=== PATIENT | male | born 1980 | race Caucasian/White ===

== ENCOUNTER 2017-12-22 09:12 | Emergency (ER) | payer MEDICAID ==
[~2017-12-22] VITALS: Ht 180.3 cm; Wt 85.0 kg
[~2017-12-22 09:12] MED LIST: ACET-890; ALBU18HF2 INH; LEVE250T4 PO; LORA10TA7 PO; OMEP40CA37 PO; [UNRECOGNIZED DRUG - OTHER]
[2017-12-22 09:39] VITALS: BP 102/59
[2017-12-22] MEDS ORDERED: LIDOcaine 5% patch TP STA (09:59)
[2017-12-22] MEDS ORDERED: TRAM50TA2 PO (10:34)
== END 2017-12-22 10:47 | disposition home or self-care (01) ==
LOC: ER 09:12
DX: M54.6 Pain in thoracic spine (principal); M54.5 Low back pain; G43.909 Migraine, unspecified, not intractable, without status migrainosus; Z60.2 Problems related to living alone; Z98.890 Other specified postprocedural states; Z88.5 Allergy status to narcotic agent; Z88.8 Allergy status to other drugs, medicaments and biological substances; Z79.899 Other long term (current) drug therapy
CPT/HCPCS: 72070; 72100; 99284

== ENCOUNTER 2018-01-02 16:03 | Emergency (ER) | payer MEDICAID ==
[~2018-01-02] VITALS: Ht 180.3 cm; Wt 90.9 kg
[~2018-01-02 16:03] MED LIST changes: +TRAM50TA2 PO
[2018-01-02 16:11] VITALS: BP 115/76
[2018-01-02] MEDS ORDERED: TRAM50TA2 PO (16:39)
[2018-01-02] MEDS ORDERED: ketorolac trometh inj. 60 MG/2 ML VIAL IM ONE (17:30)
[2018-01-02] MEDS ORDERED: triamcinolone acetonide 40mg/ml inj IM ONE (17:30)
[2018-01-02] MEDS ORDERED: meperidine/PF 100mg/ml syringe IM ONE (17:30)
[2018-01-02] MEDS ORDERED: meperidine/PF 50mg/ml syringe IM ONE ×2 (17:40→17:56)
[2018-01-02] MEDS ORDERED: HYDR-565 PO (17:47)
== END 2018-01-02 18:11 | disposition home or self-care (01) ==
LOC: ER 16:03
DX: M54.5 Low back pain (principal); G89.29 Other chronic pain; G43.909 Migraine, unspecified, not intractable, without status migrainosus; Z88.6 Allergy status to analgesic agent; Z88.1 Allergy status to other antibiotic agents; Z88.8 Allergy status to other drugs, medicaments and biological substances
CPT/HCPCS: 96372; 99284; J1885; J2175; J3301

== ENCOUNTER 2018-01-03 20:01 | Emergency (ER) | payer MEDICAID ==
[~2018-01-03] VITALS: Ht 180.3 cm; Wt 86.3 kg
[~2018-01-03 20:01] MED LIST changes: +HYDR-565 PO
[2018-01-03 20:13] VITALS: BP 110/72
== END 2018-01-03 22:38 | disposition home or self-care (01) ==
LOC: ER 20:02
DX: G89.29 Other chronic pain (principal); M54.5 Low back pain; M62.838 Other muscle spasm; G43.909 Migraine, unspecified, not intractable, without status migrainosus; F17.210 Nicotine dependence, cigarettes, uncomplicated; Z90.49 Acquired absence of other specified parts of digestive tract; Z98.890 Other specified postprocedural states; Z88.8 Allergy status to other drugs, medicaments and biological substances; Z88.5 Allergy status to narcotic agent; Z88.6 Allergy status to analgesic agent; Z79.899 Other long term (current) drug therapy
CPT/HCPCS: 99281

== ENCOUNTER 2018-02-04 09:23 | Day surgery (SDC) | payer MEDICAID ==
[~2018-02-04] VITALS: Ht 180.3 cm; Wt 88.5 kg
[~2018-02-04 09:23] MED LIST changes: -HYDR-565 PO; -TRAM50TA2 PO
[2018-02-04] MEDS ORDERED: fentaNYL/PF 50MCG/1 ML 2ML syringe ONE (09:46)
[2018-02-04] MEDS ORDERED: MIDAZolam 5mg/5ml vial ONE (09:46)
[2018-02-04] MEDS ORDERED: LIDOcaine Viscous 15ml cup ONE (09:46)
[2018-02-04] MEDS ORDERED: NEUDEXTA (09:54)
[2018-02-04] MEDS ORDERED: ZOLP10TA PO (09:55)
[2018-02-04] MEDS ORDERED: LORA-269 PO (09:55)
[2018-02-04] MEDS ORDERED: CYCL-1 PO (09:56)
[2018-02-04 10:00] VITALS: BP 126/74
[2018-02-04 10:37] VITALS: BP 114/65
[2018-02-04 10:47] VITALS: BP 107/45
[2018-02-04 10:57] VITALS: BP 104/50
[2018-02-04 11:07] VITALS: BP 124/69
== END 2018-02-04 11:20 | disposition home or self-care (01) ==
LOC: GI LAB 09:23
PROVIDERS: ATTEND Internal Medicine Gastroenterology
DX: K29.50 Unspecified chronic gastritis without bleeding (principal); K21.0 Gastro-esophageal reflux disease with esophagitis; K29.80 Duodenitis without bleeding; K44.9 Diaphragmatic hernia without obstruction or gangrene; F41.9 Anxiety disorder, unspecified; G43.909 Migraine, unspecified, not intractable, without status migrainosus; G89.29 Other chronic pain; Z88.1 Allergy status to other antibiotic agents; Z86.74 Personal history of sudden cardiac arrest; Z87.891 Personal history of nicotine dependence; Z90.89 Acquired absence of other organs; Z72.89 Other problems related to lifestyle; Z86.73 Personal history of transient ischemic attack (TIA), and cerebral infarction without residual deficits; Z88.6 Allergy status to analgesic agent; Z88.8 Allergy status to other drugs, medicaments and biological substances; Z88.5 Allergy status to narcotic agent; Z79.82 Long term (current) use of aspirin; Z79.899 Other long term (current) drug therapy; Z98.890 Other specified postprocedural states
CPT/HCPCS: 43239; 99152; J2250; J3010; J7030; A4620; G0500

== ENCOUNTER 2018-02-17 17:45 | Emergency (ER) | payer MEDICAID ==
[~2018-02-17] VITALS: Ht 180.3 cm; Wt 83.1 kg
[~2018-02-17 17:45] MED LIST changes: +CYCL-1 PO; -LEVE250T4 PO; +LORA-269 PO; +NEUDEXTA; +ZOLP10TA PO
[2018-02-17 18:11] VITALS: BP 121/77
[2018-02-17] MEDS ORDERED: AMOX-419 PO (18:32)
== END 2018-02-17 18:49 | disposition home or self-care (01) ==
LOC: ER 17:46
DX: S51.851A Open bite of right forearm, initial encounter (principal); G43.909 Migraine, unspecified, not intractable, without status migrainosus; Z90.49 Acquired absence of other specified parts of digestive tract; Z98.890 Other specified postprocedural states; Z88.6 Allergy status to analgesic agent; Z88.1 Allergy status to other antibiotic agents; Z88.5 Allergy status to narcotic agent; Z88.8 Allergy status to other drugs, medicaments and biological substances; Z79.899 Other long term (current) drug therapy; Z60.2 Problems related to living alone; W54.0XXA Bitten by dog, initial encounter; Y93.01 Activity, walking, marching and hiking; Y92.410 Unspecified street and highway as the place of occurrence of the external cause; Y99.8 Other external cause status
CPT/HCPCS: 99283

== ENCOUNTER 2018-07-11 10:21 | Emergency (ER) | payer MEDICAID, OTHER ==
[~2018-07-11] VITALS: Ht 180.3 cm; Wt 84.0 kg
[2018-07-11] MEDS ORDERED: ondansetron 4mg rapidly disintigrating tab PO ONE (12:20)
[2018-07-11] MEDS ORDERED: HYDROmorphone 1 mg/ml syringe IM ONE (12:20)
[2018-07-11 12:59] VITALS: BP 102/60
== END 2018-07-11 13:01 | disposition home or self-care (01) ==
LOC: ER 10:21
DX: M54.5 Low back pain (principal); M25.562 Pain in left knee; G89.29 Other chronic pain; G43.909 Migraine, unspecified, not intractable, without status migrainosus; Z90.49 Acquired absence of other specified parts of digestive tract; Z98.890 Other specified postprocedural states; Z88.6 Allergy status to analgesic agent; Z88.5 Allergy status to narcotic agent; Z88.8 Allergy status to other drugs, medicaments and biological substances; Z79.899 Other long term (current) drug therapy; Z60.2 Problems related to living alone; V89.2XXA Person injured in unspecified motor-vehicle accident, traffic, initial encounter; Y93.89 Activity, other specified; Y92.488 Other paved roadways as the place of occurrence of the external cause; Y99.8 Other external cause status
CPT/HCPCS: 72100; 73502; 73564; 96372; 99284; J1170

== ENCOUNTER 2018-10-14 15:19 | Emergency (ER) | payer MEDICAID ==
[~2018-10-14] VITALS: Ht 180.3 cm; Wt 84.0 kg
[2018-10-14 15:26] VITALS: BP 114/79
[2018-10-14 18:02] LABS: CLARITY,URINE CLEAR (Clear); COLOR,URINE YELLOW (Yellow); GLUCOSE, URINE NEGATIVE (Neg); KETONES,URINE NEGATIVE (Neg); LEUKOCYTE ESTERASE ,URINE NEGATIVE (Neg); NITRITES, URINE NEGATIVE (Neg); OCCULT BLOOD,URINE NEGATIVE (Neg); PROTEIN,URINE NEGATIVE (Neg); UROBILINOGEN,URINE 0.2 E.U/dL (0.2-1.0)
[2018-10-14 18:05] LABS: UA COLLECTION TYPE CLN CATCH MIDSTREAM
== END 2018-10-14 18:33 | disposition home or self-care (01) ==
LOC: ER 15:19
DX: R41.0 Disorientation, unspecified (principal); R25.1 Tremor, unspecified; R51 Headache; M54.9 Dorsalgia, unspecified; H53.9 Unspecified visual disturbance; R41.3 Other amnesia; R26.2 Difficulty in walking, not elsewhere classified; K14.6 Glossodynia; K14.9 Disease of tongue, unspecified; G89.29 Other chronic pain; Z88.8 Allergy status to other drugs, medicaments and biological substances; Z88.6 Allergy status to analgesic agent; Z79.899 Other long term (current) drug therapy; Z87.440 Personal history of urinary (tract) infections; Z87.19 Personal history of other diseases of the digestive system; Z90.49 Acquired absence of other specified parts of digestive tract; Z60.2 Problems related to living alone
CPT/HCPCS: 81003; 99284

== ENCOUNTER 2018-11-10 19:02 | Emergency (ER) | payer MEDICAID ==
[~2018-11-10] VITALS: Ht 180.3 cm; Wt 85.0 kg
[2018-11-10 22:49] VITALS: BP 133/93
--- NOTE | 2018-11-10 22:55 | NUR ---
PT AWAITING ER MD. PT WITH STABLE VS AND AT BEDSIDE. HE REPORTS A TBI 3 YRS AGO AND HAS HAD MANY PROBLEMS SINCE INCLUDING RANDOM EPISODES OF PAIN AND TREMORS TO HIS LEFT SIDE. MOSTLY HIS LEFT LEG. ON SATURDAY HE HAD PT AND HAD SOME INCREASED PAIN AND TREMORING TO HIS LEFT AND IT HAS BECOME WORSE. HE HAD A VERY VOILENT EPISODE OF TREMORING EARLIER TONIGHT THAT LEFT HIM WITH A SEVERE CONSTANT CRAMP TO HIS LEFT KNEE THAT RADIATES TO HIS LEFT INNTER THIGH.
[2018-11-10] MEDS ORDERED: acetaminophen 325mg tablet PO ONE (23:10)
== END 2018-11-10 23:57 | disposition home or self-care (01) ==
LOC: ER 19:03
DX: M79.605 Pain in left leg (principal); G89.29 Other chronic pain; Z90.49 Acquired absence of other specified parts of digestive tract; Z98.890 Other specified postprocedural states; Z60.2 Problems related to living alone; Z88.5 Allergy status to narcotic agent; Z88.6 Allergy status to analgesic agent; Z88.8 Allergy status to other drugs, medicaments and biological substances; Z79.899 Other long term (current) drug therapy
CPT/HCPCS: 73552; 99283

== ENCOUNTER 2018-11-16 16:49 | Emergency (ER) | payer MEDICAID ==
[~2018-11-16] VITALS: Ht 182.9 cm; Wt 87.0 kg
[2018-11-16] MEDS ORDERED: HYDROmorphone inj. 0.5 MG/0.5 ML DISP.SYRIN IV ONE (17:15)
[2018-11-16] MEDS ORDERED: LORazepam 2 mg/ml vial IV ONE (17:15)
[2018-11-16] MEDS ORDERED: normal saline 1000ML IV soln IVB ONE ×3 (17:15→18:40)
[2018-11-16] MEDS ORDERED: metoclopramide 5 mg/ml inj IV ONE (17:15)
[2018-11-16] MEDS ORDERED: diphenhydrAMINE 50 mg/ml inj IV ONE (17:15)
[2018-11-16 17:25] LABS: BASOPHILS # (AUTO) 0.1 X10'3 (0-0.2); BASOPHILS % (AUTO) 0.3 % (0-1); EOSINOPHILS % (AUTO) 0 % (0-6); HEMATOCRIT 49.4 % (42.0-52.0); HEMOGLOBIN 16.6 g/dl (14.0-17.9); LYMPHOCYTES # (AUTO) 1.6 X10'3 (1.1-4.8); MEAN CORPUSCULAR HEMOGLOBIN 28.2 PG (27.0-31.0); MEAN CORPUSCULAR HGB CONC 33.6 g/dL (33.0-36.5); MEAN PLATELET VOLUME 8.5 FL (7.4-10.4); MONOCYTES # (AUTO) 0.5 X10'3 (0-0.9); MONOCYTES % (AUTO) 2.5 % (2-12); NEUTROPHILS # (AUTO) 17.5 X10'3 (1.8-7.7); NEUTROPHILS % (AUTO) 89.2 % (42-75); PLATELET COUNT 346 X10'3 (140-440); RED BLOOD COUNT 5.88 X10'6 (4.70-6.10); RED CELL DISTRIBUTION WIDTH 14.4 % (11.5-14.5); WHITE BLOOD COUNT 19.6 X10'3 (4.5-11.0)
[2018-11-16 17:36] LABS: PROTHROMBIN TIME 10.3 SECONDS (9.0-12.0)
[2018-11-16 17:39] LABS: ALANINE AMINOTRANSFERASE 58 U/L (12-78); ALBUMIN 4.7 G/DL (3.4-5.0); ALBUMIN/GLOBULIN RATIO 1.1 (1.1-1.5); ALKALINE PHOSPHATASE 116 IU/L (46-116); ANION GAP 20 (8-16); ASPARTATE AMINO TRANSFERASE 28 U/L (10-37); BILIRUBIN,TOTAL 0.6 MG/DL (0.1-1.0); BLOOD UREA NITROGEN 21 MG/DL (7-18); BUN/CREATININE RATIO 16.5 (5.4-32.0); CALCIUM 10.6 MG/DL (8.5-10.1); CHLORIDE 101 MMOL/L (99-107); CREATININE 1.27 MG/DL (0.60-1.10); GLUCOSE 149 MG/DL (70-104); LIPASE 108 U/L (73-393); POTASSIUM 4.1 MMOL/L (3.5-5.1); SODIUM 141 MMOL/L (135-145); TOTAL CARBON DIOXIDE 20.3 MMOL/L (24-32); TOTAL PROTEIN 8.9 G/DL (6.4-8.2); eGFR 63 ML/MIN
[2018-11-16 17:55] LABS: CLARITY,URINE CLEAR (Clear); COLOR,URINE YELLOW (Yellow); GLUCOSE, URINE NEGATIVE (Neg); KETONES,URINE >=80 mg/dl (Neg); LEUKOCYTE ESTERASE ,URINE NEGATIVE (Neg); NITRITES, URINE NEGATIVE (Neg); OCCULT BLOOD,URINE TRACE-INTACT (Neg); PH,URINE 6.5 (4.8-8.0); PROTEIN,URINE 30 mg/dl (Neg); UROBILINOGEN,URINE 0.2 E.U/dL (0.2-1.0)
[2018-11-16 17:56] LABS: UA COLLECTION TYPE CLN CATCH MIDSTREAM
[2018-11-16 18:07] LABS: MUCUS STRANDS MANY /LPF (Neg); SQUAMOUS EPITHELIAL CELL,UR FEW /LPF (FEW)
[2018-11-16 18:09] LABS: WBC,URINE 0-4 /HPF (0-4)
[2018-11-16 18:10] LABS: BACTERIA,URINE FEW /HPF (Neg)
[2018-11-16 18:44] VITALS: BP 112/71
[2018-11-16] MEDS ORDERED: ONDA4TAB12 PO (19:37)
[2018-11-16] MEDS ORDERED: ondansetron/PF 4mg/2ml inj IV ONE (19:50)
== END 2018-11-16 20:01 | disposition home or self-care (01) ==
LOC: ER 16:50
DX: R10.13 Epigastric pain (principal); R11.2 Nausea with vomiting, unspecified; K21.9 Gastro-esophageal reflux disease without esophagitis; G89.29 Other chronic pain; F17.210 Nicotine dependence, cigarettes, uncomplicated; Z90.49 Acquired absence of other specified parts of digestive tract; Z98.890 Other specified postprocedural states; Z60.2 Problems related to living alone; Z88.5 Allergy status to narcotic agent; Z88.8 Allergy status to other drugs, medicaments and biological substances; Z79.899 Other long term (current) drug therapy
CPT/HCPCS: 36415; 74176; 80053; 81001; 83690; 84145; 85025; 85610; 96361; 96374; 96375; 99284; J1170; J1200; J2060; J2405; J2765; J7030

== ENCOUNTER 2019-05-26 17:39 | Emergency (ER) | payer MEDICAID ==
[~2019-05-26] VITALS: Ht 180.3 cm; Wt 88.6 kg
[~2019-05-26 17:39] MED LIST changes: +OMEP40CA13 PO; -OMEP40CA37 PO; +ONDA4TAB12 PO
[2019-05-26 17:55] VITALS: BP 119/84
== END 2019-05-26 19:21 | disposition home or self-care (01) ==
LOC: ER 17:39
DX: M79.652 Pain in left thigh (principal); M62.838 Other muscle spasm; R25.1 Tremor, unspecified; G43.909 Migraine, unspecified, not intractable, without status migrainosus; K21.9 Gastro-esophageal reflux disease without esophagitis; G89.29 Other chronic pain; F41.9 Anxiety disorder, unspecified; F31.9 Bipolar disorder, unspecified; F20.9 Schizophrenia, unspecified; F17.200 Nicotine dependence, unspecified, uncomplicated; Z90.49 Acquired absence of other specified parts of digestive tract; Z98.890 Other specified postprocedural states; Z60.2 Problems related to living alone; Z88.8 Allergy status to other drugs, medicaments and biological substances; Z88.5 Allergy status to narcotic agent; Z79.899 Other long term (current) drug therapy
CPT/HCPCS: 99284

== ENCOUNTER 2019-09-28 05:50 | Emergency (ER) | payer MEDICARE, MEDICAID ==
[~2019-09-28] VITALS: Ht 180.3 cm; Wt 93.0 kg
[2019-09-28 05:54] VITALS: BP 130/94
[2019-09-28] MEDS ORDERED: acetaminophen 325mg tablet PO ONE (06:15)
== END 2019-09-28 07:01 | disposition home or self-care (01) ==
LOC: ER 05:51
DX: S52.502A Unspecified fracture of the lower end of left radius, initial encounter for closed fracture (principal); G43.909 Migraine, unspecified, not intractable, without status migrainosus; K21.9 Gastro-esophageal reflux disease without esophagitis; G89.29 Other chronic pain; F15.90 Other stimulant use, unspecified, uncomplicated; Z90.49 Acquired absence of other specified parts of digestive tract; Z98.890 Other specified postprocedural states; Z88.6 Allergy status to analgesic agent; Z88.5 Allergy status to narcotic agent; Z88.1 Allergy status to other antibiotic agents; Z79.899 Other long term (current) drug therapy; W22.8XXA Striking against or struck by other objects, initial encounter; Y93.89 Activity, other specified; Y92.89 Other specified places as the place of occurrence of the external cause; Y99.9 Unspecified external cause status
CPT/HCPCS: 29125; 73110; 99283

== ENCOUNTER 2019-10-07 11:02 | Emergency (ER) | payer MEDICARE, MEDICAID ==
[~2019-10-07] VITALS: Ht 180.3 cm; Wt 93.2 kg
[2019-10-07 11:10] VITALS: BP 110/74
[2019-10-07] MEDS ORDERED: TRAM50TA2 PO (11:43)
== END 2019-10-07 11:52 | disposition home or self-care (01) ==
LOC: ER 11:02
DX: M25.532 Pain in left wrist (principal); G43.909 Migraine, unspecified, not intractable, without status migrainosus; K21.9 Gastro-esophageal reflux disease without esophagitis; G89.29 Other chronic pain; F15.90 Other stimulant use, unspecified, uncomplicated; Z98.890 Other specified postprocedural states; Z90.49 Acquired absence of other specified parts of digestive tract; Z88.6 Allergy status to analgesic agent; Z88.5 Allergy status to narcotic agent; Z88.8 Allergy status to other drugs, medicaments and biological substances; Z79.899 Other long term (current) drug therapy
CPT/HCPCS: 99284

== ENCOUNTER 2019-10-21 09:11 | Outpatient (CLI) | payer MEDICARE, MEDICAID ==
[2019-10-21 09:22] VITALS: BP 117/74
== END 2019-10-21 10:19 | disposition home or self-care (01) ==
LOC: ORTHO 09:11
PROVIDERS: ATTEND Nurse Practitioner
DX: S62.102A Fracture of unspecified carpal bone, left wrist, initial encounter for closed fracture (principal); X58.XXXA Exposure to other specified factors, initial encounter; Y93.89 Activity, other specified; Y92.89 Other specified places as the place of occurrence of the external cause; Y99.8 Other external cause status
CPT/HCPCS: 73110; G0463

== ENCOUNTER 2019-11-28 09:41 | Emergency (ER) | payer MEDICARE, MEDICAID ==
[~2019-11-28] VITALS: Ht 180.3 cm; Wt 79.1 kg
[2019-11-28 10:17] LABS: HEMOGLOBIN 17.2 g/dl (14.0-17.9); RED CELL DISTRIBUTION WIDTH 14.4 % (11.5-14.5); WHITE BLOOD COUNT 16.1 X10'3 (4.5-11.0)
[2019-11-28 10:19] LABS: BASOPHILS % (AUTO) 0.3 % (0-1); EOSINOPHILS % (AUTO) 0.1 % (0-6); LYMPHOCYTES # (AUTO) 1.6 X10'3 (1.1-4.8); LYMPHOCYTES % (AUTO) 9.9 % (21-51); MEAN CORPUSCULAR HGB CONC 33.7 g/dL (33.0-36.5); MEAN CORPUSCULAR VOLUME 83.2 FL (78-98); MEAN PLATELET VOLUME 8.4 FL (7.4-10.4); MONOCYTES # (AUTO) 0.4 X10'3 (0-0.9); MONOCYTES % (AUTO) 2.4 % (2-12); NEUTROPHILS % (AUTO) 87.3 % (42-75); PLATELET COUNT 384 X10'3 (140-440); RED BLOOD COUNT 6.14 X10'6 (4.70-6.10)
[2019-11-28 10:31] LABS: ALANINE AMINOTRANSFERASE 42 U/L (12-78); ALBUMIN 5.1 G/DL (3.4-5.0); ALBUMIN/GLOBULIN RATIO 1.1 (1.1-1.5); ALKALINE PHOSPHATASE 114 IU/L (46-116); ANION GAP 16 (8-16); ASPARTATE AMINO TRANSFERASE 25 U/L (10-37); BILIRUBIN,TOTAL 0.7 MG/DL (0.1-1.0); BLOOD UREA NITROGEN 17 MG/DL (7-18); CALCIUM 10.5 MG/DL (8.5-10.1); CHLORIDE 101 MMOL/L (99-107); CREATININE 1.06 MG/DL (0.60-1.10); GLUCOSE 125 MG/DL (70-104); LIPASE 192 U/L (73-393); SODIUM 141 MMOL/L (135-145); TOTAL CARBON DIOXIDE 24.2 MMOL/L (24-32); TOTAL PROTEIN 9.7 G/DL (6.4-8.2); eGFR 77 ML/MIN
[2019-11-28 11:01] LABS: CLARITY,URINE CLEAR (Clear); COLOR,URINE YELLOW (Yellow); GLUCOSE, URINE NEGATIVE (Neg); KETONES,URINE >=80 mg/dl (Neg); LEUKOCYTE ESTERASE ,URINE NEGATIVE (Neg); NITRITES, URINE NEGATIVE (Neg); OCCULT BLOOD,URINE NEGATIVE (Neg); PROTEIN,URINE TRACE mg/dl (Neg); UROBILINOGEN,URINE 0.2 E.U/dL (0.2-1.0)
[2019-11-28 11:13] LABS: UA COLLECTION TYPE NON-SPECIFIED
[2019-11-28 11:18] LABS: BACTERIA,URINE NONE SEEN /HPF (Neg); MUCUS STRANDS FEW /LPF (Neg); RBC,URINE 0-2 /HPF (0-2); SQUAMOUS EPITHELIAL CELL,UR NONE SEEN /LPF (FEW); WBC,URINE 0-4 /HPF (0-4)
[2019-11-28] MEDS ORDERED: normal saline 1000ML IV soln IVB ONE (11:35)
[2019-11-28] MEDS ORDERED: haloperidol lactate 5mg/ml inj IM ONE (11:35)
[2019-11-28] MEDS ORDERED: diphenhydrAMINE 50 mg/ml inj IV ONE (11:35)
[2019-11-28] MEDS ORDERED: metoclopramide 5 mg/ml inj IV ONE (11:35)
[2019-11-28] MEDS ORDERED: famotidine/PF 10 mg/ml inj IV ONE (11:35)
[2019-11-28] MEDS ORDERED: LIDOcaine Viscous 15ml cup MM STA (12:05)
[2019-11-28] MEDS ORDERED: mag hydrox/Alum hydrox/simeth 30ml oral suspension PO ONE (12:05)
[2019-11-28] MEDS ORDERED: ONDA4TAB6 PO (13:38)
[2019-11-28] MEDS ORDERED: DICY10CA88 PO (13:38)
[2019-11-28] MEDS ORDERED: MAG355OR18 PO (13:38)
[2019-11-28 13:51] VITALS: BP 126/83
[2019-11-30] MEDS ORDERED: LORA-269 PO (06:12)
[2019-11-30] MEDS ORDERED: DEXT1CAP3 PO (06:15)
== END 2019-11-28 13:53 | disposition home or self-care (01) ==
LOC: ER 09:42
DX: R10.13 Epigastric pain (principal); R11.2 Nausea with vomiting, unspecified; K59.00 Constipation, unspecified; J44.9 Chronic obstructive pulmonary disease, unspecified; K21.9 Gastro-esophageal reflux disease without esophagitis; G89.29 Other chronic pain; F41.9 Anxiety disorder, unspecified; F31.9 Bipolar disorder, unspecified; F20.9 Schizophrenia, unspecified; F12.90 Cannabis use, unspecified, uncomplicated; Z90.49 Acquired absence of other specified parts of digestive tract; Z98.890 Other specified postprocedural states; Z88.5 Allergy status to narcotic agent; Z88.8 Allergy status to other drugs, medicaments and biological substances; Z79.899 Other long term (current) drug therapy
CPT/HCPCS: 36415; 76700; 80053; 81001; 83690; 84484; 85025; 96361; 96372; 96374; 96375; 99285; J1200; J1630; J2765; J3490; J7030

== ENCOUNTER 2020-01-10 16:55 | Emergency (ER) | payer MEDICARE, MEDICAID ==
[~2020-01-10] VITALS: Ht 182.9 cm; Wt 84.7 kg
[~2020-01-10 16:55] MED LIST changes: +DEXT1CAP3 PO; +DICY10CA88 PO; -NEUDEXTA; -ZOLP10TA PO
[2020-01-10] MEDS ORDERED: ondansetron/PF 4mg/2ml inj IV ONE (17:10)
[2020-01-10] MEDS ORDERED: normal saline 1000ML IV soln IVB ONE (17:10)
[2020-01-10 17:35] LABS: BASOPHILS # (AUTO) 0.1 X10'3 (0-0.2); BASOPHILS % (AUTO) 0.5 % (0-1); EOSINOPHILS # (AUTO) 0.1 X10'3 (0-0.9); EOSINOPHILS % (AUTO) 0.7 % (0-6); HEMATOCRIT 47.3 % (42.0-52.0); HEMOGLOBIN 15.9 g/dl (14.0-17.9); LYMPHOCYTES # (AUTO) 3.1 X10'3 (1.1-4.8); LYMPHOCYTES % (AUTO) 18.7 % (21-51); MEAN CORPUSCULAR HEMOGLOBIN 27.8 PG (27.0-31.0); MEAN CORPUSCULAR HGB CONC 33.5 g/dL (33.0-36.5); MEAN CORPUSCULAR VOLUME 83.1 FL (78-98); MEAN PLATELET VOLUME 8.1 FL (7.4-10.4); MONOCYTES # (AUTO) 0.7 X10'3 (0-0.9); MONOCYTES % (AUTO) 4.5 % (2-12); NEUTROPHILS # (AUTO) 12.4 X10'3 (1.8-7.7); NEUTROPHILS % (AUTO) 75.6 % (42-75); PLATELET COUNT 400 X10'3 (140-440); RED CELL DISTRIBUTION WIDTH 14.1 % (11.5-14.5); WHITE BLOOD COUNT 16.4 X10'3 (4.5-11.0)
[2020-01-10 17:50] LABS: ALANINE AMINOTRANSFERASE 39 U/L (12-78); ALBUMIN 4.7 G/DL (3.4-5.0); ALBUMIN/GLOBULIN RATIO 1.2 (1.1-1.5); ALKALINE PHOSPHATASE 115 IU/L (46-116); ANION GAP 16 (8-16); ASPARTATE AMINO TRANSFERASE 28 U/L (10-37); BILIRUBIN,TOTAL 0.6 MG/DL (0.1-1.0); BLOOD UREA NITROGEN 15 MG/DL (7-18); BUN/CREATININE RATIO 13.3 (5.4-32.0); CHLORIDE 101 MMOL/L (99-107); CREATININE 1.13 MG/DL (0.60-1.10); GLUCOSE 143 MG/DL (70-104); LIPASE 146 U/L (73-393); MAGNESIUM 1.9 MG/DL (1.5-2.4); POTASSIUM 3.6 MMOL/L (3.5-5.1); SODIUM 141 MMOL/L (135-145); TOTAL CARBON DIOXIDE 23.9 MMOL/L (24-32); TOTAL PROTEIN 8.6 G/DL (6.4-8.2); eGFR 72 ML/MIN
[2020-01-10 17:52] LABS: ETHANOL < 0.010 GM/DL (0.0-0.010)
[2020-01-10] MEDS ORDERED: ONDA8TAB6 PO (18:04)
[2020-01-10 18:12] VITALS: BP 145/98
[2020-01-10] MEDS ORDERED: metoclopramide 5 mg/ml inj IV ONE (18:20)
== END 2020-01-10 18:40 | disposition home or self-care (01) ==
LOC: ER 16:56
DX: R10.84 Generalized abdominal pain (principal); R11.2 Nausea with vomiting, unspecified; G43.909 Migraine, unspecified, not intractable, without status migrainosus; J44.9 Chronic obstructive pulmonary disease, unspecified; K21.9 Gastro-esophageal reflux disease without esophagitis; G89.29 Other chronic pain; F12.90 Cannabis use, unspecified, uncomplicated; Z90.49 Acquired absence of other specified parts of digestive tract; Z98.890 Other specified postprocedural states; Z88.6 Allergy status to analgesic agent; Z88.5 Allergy status to narcotic agent; Z88.8 Allergy status to other drugs, medicaments and biological substances; Z79.899 Other long term (current) drug therapy
CPT/HCPCS: 36415; 80053; 80320; 83690; 83735; 85025; 96361; 96374; 96375; 99284; J2405; J2765; J7030

== ENCOUNTER 2020-01-11 01:10 | Emergency (ER) | payer MEDICARE, MEDICAID ==
[~2020-01-11] VITALS: Ht 180.3 cm; Wt 84.1 kg
[~2020-01-11 01:10] MED LIST changes: +ONDA8TAB6 PO
[2020-01-11] MEDS ORDERED: normal saline 1000ML IV soln IVB ONE (01:25)
[2020-01-11] MEDS ORDERED: magnesium 2GM in 50ml NS 50 ML IV ONE (01:25)
[2020-01-11] MEDS ORDERED: LORazepam 2 mg/ml vial IV ONE (01:25)
[2020-01-11] MEDS ORDERED: haloperidol lactate 5mg/ml inj IM ONE (01:30)
--- NOTE | 2020-01-11 02:00 | NUR ---
pt up to br to have bm. ambulating with steady sow gait. 1st of 2 liters ns infused. just given ativan 1 mg iv and haldol 2.5 mg im. just had episode of emesis, 80 cc's, watery light red.
[2020-01-11 03:01] VITALS: BP 139/87
== END 2020-01-11 03:26 | disposition home or self-care (01) ==
LOC: ER 01:11
DX: K29.00 Acute gastritis without bleeding (principal); J44.9 Chronic obstructive pulmonary disease, unspecified; K21.9 Gastro-esophageal reflux disease without esophagitis; G89.29 Other chronic pain; F41.9 Anxiety disorder, unspecified; F31.9 Bipolar disorder, unspecified; F20.9 Schizophrenia, unspecified; F12.90 Cannabis use, unspecified, uncomplicated; Z90.49 Acquired absence of other specified parts of digestive tract; Z98.890 Other specified postprocedural states; Z60.2 Problems related to living alone; Z88.5 Allergy status to narcotic agent; Z88.6 Allergy status to analgesic agent; Z88.8 Allergy status to other drugs, medicaments and biological substances; Z79.899 Other long term (current) drug therapy
CPT/HCPCS: 96365; 96366; 96372; 96375; 99284; J1630; J2060; J3475; J7030

== ENCOUNTER 2020-06-19 17:19 | Emergency (ER) | payer MEDICARE, MEDICAID ==
[~2020-06-19] VITALS: Ht 180.3 cm; Wt 93.2 kg
[2020-06-19 17:35] VITALS: BP 154/95
--- NOTE | 2020-06-19 18:00 | NUR ---
PT. CALLED, PT. SITTING ON FLOWER BED AND NOW REFUSES TO COME BACK TO A ROOM. SCREENER TOLD PT. THAT WE WERE CALLING HIM BACK TO A ROOM PT. STATED " I AM NOT GOING I AM LEAVING, I HAVE WAITED TO LONG. WE LET HIM KNOW THE BED WAS READY AND HE REFUSED.
[2020-06-20] MEDS ORDERED: ONDA8TAB13 PO (02:02)
== END 2020-06-19 18:48 | disposition home or self-care (01) ==
LOC: ER 17:20
DX: R42 Dizziness and giddiness (principal); Z53.21 Procedure and treatment not carried out due to patient leaving prior to being seen by health care provider
CPT/HCPCS: 93005

== ENCOUNTER 2020-06-19 23:55 | Emergency (ER) | payer MEDICARE, MEDICAID ==
[~2020-06-19] VITALS: Ht 180.3 cm; Wt 90.9 kg
[2020-06-20] MEDS ORDERED: normal saline 1000ML IV soln IVB ONE (00:15)
[2020-06-20] MEDS ORDERED: ondansetron/PF 4mg/2ml inj IV ONE (00:15)
[2020-06-20 00:40] LABS: COLOR,URINE YELLOW (Yellow); GLUCOSE, URINE NEGATIVE (Neg); LEUKOCYTE ESTERASE ,URINE NEGATIVE (Neg); NITRITES, URINE NEGATIVE (Neg)
[2020-06-20 00:41] LABS: CLARITY,URINE SLIGHTLY CLOUDY (Clear); KETONES,URINE NEGATIVE (Neg); OCCULT BLOOD,URINE LARGE (Neg); PROTEIN,URINE NEGATIVE (Neg)
[2020-06-20 00:51] LABS: BASOPHILS # (AUTO) 0.1 X10'3 (0-0.2); BASOPHILS % (AUTO) 0.4 % (0-1); EOSINOPHILS % (AUTO) 0 % (0-6); HEMATOCRIT 47.1 % (42.0-52.0); LYMPHOCYTES # (AUTO) 1.4 X10'3 (1.1-4.8); LYMPHOCYTES % (AUTO) 9.4 % (21-51); MEAN CORPUSCULAR HEMOGLOBIN 27.9 PG (27.0-31.0); MEAN PLATELET VOLUME 8.6 FL (7.4-10.4); MONOCYTES # (AUTO) 0.5 X10'3 (0-0.9); MONOCYTES % (AUTO) 3.1 % (2-12); NEUTROPHILS # (AUTO) 12.9 X10'3 (1.8-7.7); NEUTROPHILS % (AUTO) 87.1 % (42-75); PLATELET COUNT 345 X10'3 (140-440); RED BLOOD COUNT 5.74 X10'6 (4.70-6.10); RED CELL DISTRIBUTION WIDTH 14.3 % (11.5-14.5); WHITE BLOOD COUNT 14.7 X10'3 (4.5-11.0)
[2020-06-20 00:58] LABS: ALANINE AMINOTRANSFERASE 32 U/L (12-78); ALBUMIN 4.5 G/DL (3.4-5.0); ALBUMIN/GLOBULIN RATIO 1.2 (1.1-1.5); ALKALINE PHOSPHATASE 102 IU/L (46-116); ANION GAP 15 (8-16); ASPARTATE AMINO TRANSFERASE 18 U/L (10-37); BILIRUBIN,TOTAL 0.5 MG/DL (0.1-1.0); BLOOD UREA NITROGEN 16 MG/DL (7-18); BUN/CREATININE RATIO 14.7 (5.4-32.0); CALCIUM 9.9 MG/DL (8.5-10.1); CHLORIDE 102 MMOL/L (99-107); CREATININE 1.09 MG/DL (0.60-1.10); ETHANOL < 0.010 GM/DL (0.0-0.010); GLUCOSE 146 MG/DL (70-104); LIPASE 132 U/L (73-393); POTASSIUM 3.3 MMOL/L (3.5-5.1); SODIUM 139 MMOL/L (135-145); TOTAL CARBON DIOXIDE 22.5 MMOL/L (24-32); TOTAL PROTEIN 8.4 G/DL (6.4-8.2); eGFR 75 ML/MIN
[2020-06-20 01:05] LABS: UA COLLECTION TYPE VOIDED
[2020-06-20 01:17] LABS: BACTERIA,URINE NONE SEEN /HPF (Neg); MUCUS STRANDS MANY /LPF (Neg); SQUAMOUS EPITHELIAL CELL,UR FEW /LPF (FEW); TRANSITIONAL EPI CELLS,URINE FEW /HPF; WBC,URINE 0-4 /HPF (0-4)
[2020-06-20 01:22] LABS: AMMONIUM BIURATE CRYSTALS FEW /HPF (NEGATIVE)
[2020-06-20] MEDS ORDERED: haloperidol lactate 5mg/ml inj IM ONE (01:25)
[2020-06-20] MEDS ORDERED: LORazepam 2 mg/ml vial IV ONE (01:25)
[2020-06-20] MEDS ORDERED: ONDA8TAB13 PO (02:02)
[2020-06-20 02:07] VITALS: BP 110/66
== END 2020-06-20 02:17 | disposition home or self-care (01) ==
LOC: ER 23:56
DX: E86.0 Dehydration (principal); R11.2 Nausea with vomiting, unspecified; J44.9 Chronic obstructive pulmonary disease, unspecified; G43.909 Migraine, unspecified, not intractable, without status migrainosus; K21.9 Gastro-esophageal reflux disease without esophagitis; G89.29 Other chronic pain; F41.9 Anxiety disorder, unspecified; F31.9 Bipolar disorder, unspecified; F20.9 Schizophrenia, unspecified; F12.90 Cannabis use, unspecified, uncomplicated; Z90.49 Acquired absence of other specified parts of digestive tract; Z98.890 Other specified postprocedural states; Z60.2 Problems related to living alone; Z88.5 Allergy status to narcotic agent; Z88.8 Allergy status to other drugs, medicaments and biological substances; Z79.899 Other long term (current) drug therapy
CPT/HCPCS: 36415; 80053; 80320; 81001; 83690; 85025; 96361; 96372; 96374; 96375; 99284; J1630; J2060; J2405; J7030

== ENCOUNTER → 2020-06-20 | Emergency (ER) | payer MEDICARE, MEDICAID ==
[~2020-06-20] VITALS: Ht 180.3 cm; Wt 90.9 kg
[~2020-06-20] MED LIST changes: +ONDA8TAB13 PO
[2020-06-20 21:38] VITALS: BP 146/92
== END | disposition home or self-care (01) ==
LOC: ER 21:36
DX: R68.84 Jaw pain (principal); G43.909 Migraine, unspecified, not intractable, without status migrainosus; J44.9 Chronic obstructive pulmonary disease, unspecified; G89.29 Other chronic pain; F41.9 Anxiety disorder, unspecified; F31.9 Bipolar disorder, unspecified; F20.9 Schizophrenia, unspecified; K21.9 Gastro-esophageal reflux disease without esophagitis; F12.90 Cannabis use, unspecified, uncomplicated; Z72.89 Other problems related to lifestyle; Z60.2 Problems related to living alone; Z88.8 Allergy status to other drugs, medicaments and biological substances; Z88.5 Allergy status to narcotic agent; Z79.899 Other long term (current) drug therapy
CPT/HCPCS: 99281

== ENCOUNTER 2020-07-08 11:13 | Emergency (ER) | payer MEDICARE, MEDICAID ==
[~2020-07-08] VITALS: Ht 182.9 cm; Wt 81.0 kg
[2020-07-08 12:22] LABS: BASOPHILS # (AUTO) 0.1 X10'3 (0-0.2); BASOPHILS % (AUTO) 0.4 % (0-1); EOSINOPHILS # (AUTO) 0.1 X10'3 (0-0.9); EOSINOPHILS % (AUTO) 0.4 % (0-6); HEMATOCRIT 48.3 % (42.0-52.0); HEMOGLOBIN 16.3 g/dl (14.0-17.9); LYMPHOCYTES # (AUTO) 2.2 X10'3 (1.1-4.8); LYMPHOCYTES % (AUTO) 12.5 % (21-51); MEAN CORPUSCULAR HEMOGLOBIN 27.7 PG (27.0-31.0); MEAN CORPUSCULAR HGB CONC 33.8 g/dL (33.0-36.5); MEAN CORPUSCULAR VOLUME 82.1 FL (78-98); MEAN PLATELET VOLUME 8.2 FL (7.4-10.4); MONOCYTES # (AUTO) 0.6 X10'3 (0-0.9); MONOCYTES % (AUTO) 3.3 % (2-12); NEUTROPHILS # (AUTO) 14.6 X10'3 (1.8-7.7); NEUTROPHILS % (AUTO) 83.4 % (42-75); PLATELET COUNT 386 X10'3 (140-440); RED BLOOD COUNT 5.88 X10'6 (4.70-6.10); RED CELL DISTRIBUTION WIDTH 14.2 % (11.5-14.5); WHITE BLOOD COUNT 17.6 X10'3 (4.5-11.0)
[2020-07-08 12:38] LABS: ALANINE AMINOTRANSFERASE 52 U/L (12-78); ALBUMIN 4.7 G/DL (3.4-5.0); ALBUMIN/GLOBULIN RATIO 1.1 (1.1-1.5); ALKALINE PHOSPHATASE 126 IU/L (46-116); AMYLASE 61 U/L (25-115); ANION GAP 16 (8-16); ASPARTATE AMINO TRANSFERASE 20 U/L (10-37); BILIRUBIN,TOTAL 0.5 MG/DL (0.1-1.0); BLOOD UREA NITROGEN 18 MG/DL (7-18); BUN/CREATININE RATIO 16.8 (5.4-32.0); CHLORIDE 102 MMOL/L (99-107); CREATININE 1.07 MG/DL (0.60-1.10); GLUCOSE 178 MG/DL (70-104); LIPASE 125 U/L (73-393); SODIUM 137 MMOL/L (135-145); TOTAL CARBON DIOXIDE 18.9 MMOL/L (24-32); TOTAL PROTEIN 8.8 G/DL (6.4-8.2); eGFR 76 ML/MIN
[2020-07-08] MEDS ORDERED: ondansetron/PF 4mg/2ml inj IV ONE (12:45)
[2020-07-08] MEDS ORDERED: normal saline 1000ML IV soln IVB ONE (12:45)
[2020-07-08] MEDS ORDERED: iohexol 300mg/ml 100ml inj. ONE (13:00)
[2020-07-08 13:43] LABS: ETHANOL < 0.010 GM/DL (0.0-0.010)
[2020-07-08 13:49] LABS: PARTIAL THROMBOPLASTIN TIME 25 SECONDS (22-32)
[2020-07-08 14:59] LABS: CLARITY,URINE CLEAR (Clear); COLOR,URINE YELLOW (Yellow); GLUCOSE, URINE NEGATIVE (Neg); KETONES,URINE TRACE mg/dl (Neg); LEUKOCYTE ESTERASE ,URINE NEGATIVE (Neg); NITRITES, URINE NEGATIVE (Neg); OCCULT BLOOD,URINE NEGATIVE (Neg); PH,URINE 5.5 (4.8-8.0); PROTEIN,URINE NEGATIVE (Neg); UROBILINOGEN,URINE 0.2 E.U/dL (0.2-1.0)
[2020-07-08 15:05] LABS: UA COLLECTION TYPE CLN CATCH MIDSTREAM
[2020-07-08 15:34] LABS: OCCULT BLOOD STOOL NEGATIVE (Neg)
[2020-07-08] MEDS ORDERED: CIP750T PO (15:49)
[2020-07-08] MEDS ORDERED: METR500T PO (15:49)
[2020-07-08 16:50] VITALS: BP 136/79
== END 2020-07-08 17:53 | disposition home or self-care (01) ==
LOC: ER 11:13
DX: K52.9 Noninfective gastroenteritis and colitis, unspecified (principal); R10.9 Unspecified abdominal pain; R11.10 Vomiting, unspecified; G43.909 Migraine, unspecified, not intractable, without status migrainosus; J44.9 Chronic obstructive pulmonary disease, unspecified; K21.9 Gastro-esophageal reflux disease without esophagitis; G89.29 Other chronic pain; F41.9 Anxiety disorder, unspecified; F31.9 Bipolar disorder, unspecified; F20.9 Schizophrenia, unspecified; F17.200 Nicotine dependence, unspecified, uncomplicated; R19.7 Diarrhea, unspecified; F12.90 Cannabis use, unspecified, uncomplicated; Z90.49 Acquired absence of other specified parts of digestive tract; Z98.890 Other specified postprocedural states; Z88.5 Allergy status to narcotic agent; Z88.8 Allergy status to other drugs, medicaments and biological substances; Z79.899 Other long term (current) drug therapy
CPT/HCPCS: 36415; 71045; 74177; 80053; 80320; 81003; 82150; 82272; 83690; 84484; 85025; 85610; 85730; 96361; 96374; 99285; J2405; J7030; Q9967

== ENCOUNTER 2020-07-21 08:19 | Emergency (ER) | payer MEDICARE, MEDICAID ==
[~2020-07-21] VITALS: Ht 180.3 cm; Wt 83.2 kg
[2020-07-21] MEDS ORDERED: normal saline 1000ML IV soln IVB ONE (09:15)
[2020-07-21] MEDS ORDERED: haloperidol lactate 5mg/ml inj IM ONE (09:20)
[2020-07-21] MEDS ORDERED: famotidine/PF 10 mg/ml inj IV ONE (09:20)
[2020-07-21] MEDS ORDERED: LORazepam 2 mg/ml vial IV ONE (09:20)
[2020-07-21 09:46] LABS: BASOPHILS # (AUTO) 0.1 X10'3 (0-0.2); BASOPHILS % (AUTO) 0.2 % (0-1); EOSINOPHILS # (AUTO) 0.1 X10'3 (0-0.9); EOSINOPHILS % (AUTO) 0.3 % (0-6); HEMOGLOBIN 15.4 g/dl (14.0-17.9); LYMPHOCYTES # (AUTO) 1.2 X10'3 (1.1-4.8); LYMPHOCYTES % (AUTO) 4.4 % (21-51); MEAN CORPUSCULAR HEMOGLOBIN 27.5 PG (27.0-31.0); MEAN CORPUSCULAR HGB CONC 33.4 g/dL (33.0-36.5); MEAN CORPUSCULAR VOLUME 82.3 FL (78-98); MEAN PLATELET VOLUME 8.2 FL (7.4-10.4); MONOCYTES # (AUTO) 0.9 X10'3 (0-0.9); MONOCYTES % (AUTO) 3.5 % (2-12); NEUTROPHILS # (AUTO) 24.8 X10'3 (1.8-7.7); NEUTROPHILS % (AUTO) 91.6 % (42-75); PLATELET COUNT 290 X10'3 (140-440); RED CELL DISTRIBUTION WIDTH 14.4 % (11.5-14.5)
[2020-07-21 09:48] LABS: WHITE BLOOD COUNT 27.1 X10'3 (4.5-11.0)
[2020-07-21 09:54] LABS: ALANINE AMINOTRANSFERASE 41 U/L (12-78); ALBUMIN 4.2 G/DL (3.4-5.0); ALBUMIN/GLOBULIN RATIO 1.1 (1.1-1.5); ALKALINE PHOSPHATASE 103 IU/L (46-116); ANION GAP 12 (8-16); ASPARTATE AMINO TRANSFERASE 18 U/L (10-37); BILIRUBIN,TOTAL 0.7 MG/DL (0.1-1.0); BLOOD UREA NITROGEN 14 MG/DL (7-18); BUN/CREATININE RATIO 11.4 (5.4-32.0); CALCIUM 9.8 MG/DL (8.5-10.1); CHLORIDE 100 MMOL/L (99-107); CREATININE 1.23 MG/DL (0.60-1.10); GLUCOSE 169 MG/DL (70-104); LIPASE 107 U/L (73-393); POTASSIUM 3.7 MMOL/L (3.5-5.1); SODIUM 137 MMOL/L (135-145); TOTAL CARBON DIOXIDE 25.2 MMOL/L (24-32); TOTAL PROTEIN 8.2 G/DL (6.4-8.2); eGFR 65 ML/MIN
[2020-07-21 10:29] LABS: PLATELET ESTIMATE NORMAL; TOTAL CELLS COUNTED 100
[2020-07-21 11:27] VITALS: BP 134/87
== END 2020-07-21 11:29 | disposition home or self-care (01) ==
LOC: ER 08:20
DX: R11.15 Cyclical vomiting syndrome unrelated to migraine (principal); R10.30 Lower abdominal pain, unspecified; G43.909 Migraine, unspecified, not intractable, without status migrainosus; J44.9 Chronic obstructive pulmonary disease, unspecified; K21.9 Gastro-esophageal reflux disease without esophagitis; G89.29 Other chronic pain; F41.9 Anxiety disorder, unspecified; F31.9 Bipolar disorder, unspecified; F20.9 Schizophrenia, unspecified; F12.90 Cannabis use, unspecified, uncomplicated; Z90.49 Acquired absence of other specified parts of digestive tract; Z98.890 Other specified postprocedural states; Z72.89 Other problems related to lifestyle; Z88.5 Allergy status to narcotic agent; Z88.8 Allergy status to other drugs, medicaments and biological substances; Z79.899 Other long term (current) drug therapy
CPT/HCPCS: 36415; 80053; 83605; 83690; 84145; 85007; 85025; 87040; 96361; 96372; 96374; 96375; 99285; J1630; J2060; J3490; J7030

== ENCOUNTER 2020-07-29 12:14 | Emergency (ER) | payer MEDICARE, MEDICAID ==
[~2020-07-29] VITALS: Ht 180.3 cm; Wt 79.0 kg
[2020-07-29 12:59] LABS: BASOPHILS # (AUTO) 0.1 X10'3 (0-0.2); BASOPHILS % (AUTO) 0.4 % (0-1); EOSINOPHILS % (AUTO) 0.2 % (0-6); HEMATOCRIT 48.4 % (42.0-52.0); HEMOGLOBIN 16.3 g/dl (14.0-17.9); LYMPHOCYTES # (AUTO) 1.6 X10'3 (1.1-4.8); LYMPHOCYTES % (AUTO) 11.8 % (21-51); MEAN CORPUSCULAR HEMOGLOBIN 27.5 PG (27.0-31.0); MEAN CORPUSCULAR HGB CONC 33.6 g/dL (33.0-36.5); MEAN CORPUSCULAR VOLUME 81.8 FL (78-98); MEAN PLATELET VOLUME 7.5 FL (7.4-10.4); MONOCYTES # (AUTO) 1.1 X10'3 (0-0.9); NEUTROPHILS % (AUTO) 79.6 % (42-75); PLATELET COUNT 513 X10'3 (140-440); RED BLOOD COUNT 5.92 X10'6 (4.70-6.10); WHITE BLOOD COUNT 13.8 X10'3 (4.5-11.0)
[2020-07-29 13:24] LABS: ALANINE AMINOTRANSFERASE 42 U/L (12-78); ALBUMIN 4.3 G/DL (3.4-5.0); ALKALINE PHOSPHATASE 108 IU/L (46-116); ANION GAP 17 (8-16); ASPARTATE AMINO TRANSFERASE 17 U/L (10-37); BILIRUBIN,TOTAL 0.6 MG/DL (0.1-1.0); BLOOD UREA NITROGEN 13 MG/DL (7-18); BUN/CREATININE RATIO 11.5 (5.4-32.0); CALCIUM 9.9 MG/DL (8.5-10.1); CHLORIDE 101 MMOL/L (99-107); CREATININE 1.13 MG/DL (0.60-1.10); GLUCOSE 136 MG/DL (70-104); LIPASE 91 U/L (73-393); POTASSIUM 3.7 MMOL/L (3.5-5.1); SODIUM 140 MMOL/L (135-145); TOTAL CARBON DIOXIDE 21.6 MMOL/L (24-32); TOTAL PROTEIN 8.7 G/DL (6.4-8.2); eGFR 72 ML/MIN
[2020-07-29] MEDS ORDERED: ondansetron/PF 4mg/2ml inj IV ONE (14:00)
[2020-07-29] MEDS ORDERED: normal saline 1000ML IV soln IVB ONE ×2 (14:00→15:30)
[2020-07-29] MEDS ORDERED: mag hydrox/Alum hydrox/simeth 30ml oral suspension PO ONE (14:00)
[2020-07-29] MEDS ORDERED: dicyclomine 10 MG capsule PO ONE (14:00)
[2020-07-29] MEDS ORDERED: polyethylene glycol 3350 17gm powd pack PO STA (14:05)
[2020-07-29] MEDS ORDERED: magnesium citrate 296ml oral solution PO ONE (14:05)
--- NOTE | 2020-07-29 14:55 | NUR ---
Pt reports he has had a small bowel movement. Pt given the medications, is receiving IV fluid bolus and has a bedside commode.
[2020-07-29] MEDS ORDERED: proCHLORperazine 10 MG/2 ml inj IV ONE (15:30)
[2020-07-29 15:42] LABS: CLARITY,URINE SLIGHTLY CLOUDY (Clear); GLUCOSE, URINE NEGATIVE (Neg); KETONES,URINE >=80 mg/dl (Neg); LEUKOCYTE ESTERASE ,URINE NEGATIVE (Neg); NITRITES, URINE NEGATIVE (Neg); OCCULT BLOOD,URINE NEGATIVE (Neg); PROTEIN,URINE TRACE mg/dl (Neg); UROBILINOGEN,URINE 0.2 E.U/dL (0.2-1.0)
[2020-07-29 15:49] LABS: UA COLLECTION TYPE URINAL
[2020-07-29 15:50] LABS: COLOR,URINE AMBER (Yellow)
[2020-07-29 15:51] LABS: AMORPHOUS URATES 1+; BACTERIA,URINE NONE SEEN /HPF (Neg); MUCUS STRANDS FEW /LPF (Neg); RBC,URINE NONE SEEN /HPF (0-2); SQUAMOUS EPITHELIAL CELL,UR NONE SEEN /LPF (FEW); WBC,URINE 0-4 /HPF (0-4)
--- NOTE | 2020-07-29 16:12 | NUR ---
Pt's IV fluid Bolus is infusing. Pt has no significant change in condition.
[2020-07-29] MEDS ORDERED: POLY17PO10 PO (16:50)
[2020-07-29] MEDS ORDERED: DOCU100C40 PO (16:50)
--- NOTE | 2020-07-29 16:51 | NUR ---
Pt had a moderate amount of loose stool after the medications and IV fluids. Pt reports feeling much better and believes he is ready for discharge to home.
[2020-07-29 17:01] VITALS: BP 163/99
== END 2020-07-29 17:06 | disposition home or self-care (01) ==
LOC: ER 12:15
DX: R10.30 Lower abdominal pain, unspecified (principal); R11.10 Vomiting, unspecified; G43.909 Migraine, unspecified, not intractable, without status migrainosus; J44.9 Chronic obstructive pulmonary disease, unspecified; K21.9 Gastro-esophageal reflux disease without esophagitis; G89.29 Other chronic pain; F41.9 Anxiety disorder, unspecified; F31.9 Bipolar disorder, unspecified; F20.9 Schizophrenia, unspecified; F12.90 Cannabis use, unspecified, uncomplicated; Z90.49 Acquired absence of other specified parts of digestive tract; Z98.890 Other specified postprocedural states; Z72.89 Other problems related to lifestyle; Z60.2 Problems related to living alone; Z88.5 Allergy status to narcotic agent; Z88.8 Allergy status to other drugs, medicaments and biological substances; Z79.899 Other long term (current) drug therapy
CPT/HCPCS: 36415; 74018; 80053; 81001; 83690; 85025; 96361; 96374; 96375; 99285; J0780; J2405; J7030

== ENCOUNTER 2023-10-07 20:04 | Emergency (ER) | payer BC, MEDICAID ==
[~2023-10-07] VITALS: Ht 182.9 cm; Wt 77.3 kg
[~2023-10-07 20:04] MED LIST changes: +DOCU100C40 PO; -OMEP40CA13 PO; +OMEP40CA21 PO
[2023-10-07 20:09] VITALS: BP 118/75; PULSE 95; TEMP 98.3; O2SAT 97
[2023-10-07] MEDS ORDERED: ketorolac trometh inj. 60 MG/2 ML VIAL IM ONE (20:50)
[2023-10-07] MEDS ORDERED: PRED20TA PO (20:51)
[2023-10-07 21:10] VITALS: RESP 17
== END 2023-10-07 21:00 | disposition home or self-care (01) ==
LOC: ER 20:05
DX: M77.8 Other enthesopathies, not elsewhere classified (principal)
CPT/HCPCS: 96372; 99283; J1885; J7030